=== PATIENT | male | born 1980 | race Caucasian/White ===

== ENCOUNTER 2018-12-10 19:41 | Inpatient (IN) | payer MEDICAID ==
[2018-12-10 20:15] LABS: ADD MAN DIFF? NO
[2018-12-10] MEDS: CEFEPIME 1GM/50 ML (PMX) 50 ML IVPB (20:17)
[2018-12-10] MEDS: IBUPROFEN 600 MG TAB PO (20:17)
[2018-12-10 20:18] LABS: WHITE BLOOD COUNT 14.4 10^3/ul (4.8-10.8)
[2018-12-10 20:18] LABS: BASOPHILS % 0.2 % (0.0-2.0); EOSINOPHILS % 0.1 % (0.0-7.0); HEMATOCRIT 33.3 % (42.0-52.0); HEMOGLOBIN 10.8 g/dl (14.0-18.0); LYMPHOCYTES # 0.9 10^3/ul (0.8-2.9); LYMPHOCYTES % 6.3 % (15.0-51.0); MEAN CORPUSCULAR HEMOGLOBIN 27.6 pg (29.0-33.0); MEAN CORPUSCULAR HGB CONC 32.4 g/dl (32.0-37.0); MEAN CORPUSCULAR VOLUME 85.2 fl (82.0-101.0); MEAN PLATELET VOLUME 11.1 fl (7.4-10.4); MONOCYTE # 1.5 10^3/ul (0.3-0.9); MONOCYTES % 10.1 % (0.0-11.0); NEUTROPHIL # 11.9 10^3/ul (1.6-7.5); NEUTROPHILS % 82.6 % (39.0-77.0); PLATELET COUNT 121 10^3/UL (140-415); RED BLOOD COUNT 3.91 10^6/ul (4.70-6.10); RED CELL DISTRIBUTION WIDTH 15.4 % (11.5-14.5)
[2018-12-10 20:35] LABS: INR 1.21; PROTIME 15.4 Sec (11.9-14.9); PT RATIO 1.2
[2018-12-10 20:36] LABS: PARTIAL THROMBOPLASTIN TIME 36.4 Sec (23.0-35.0)
[2018-12-10 20:37] LABS: ALANINE AMINOTRANSFERASE 35 IU/L (13-69); ALBUMIN 4.3 g/dl (3.3-4.9); ALBUMIN/GLOBULIN RATIO 1.38; ALKALINE PHOSPHATASE 73 IU/L (42-121); ANION GAP 15 (5-13); ASPARTATE AMINO TRANSFERASE 17 IU/L (15-46); BILIRUBIN,INDIRECT 0.3 mg/dl (0-1.1); BILIRUBIN,TOTAL 0.3 mg/dl (0.2-1.3); BLOOD UREA NITROGEN 75 mg/dl (7-20); C-REACTIVE PROTEIN 8.4 mg/dl (0.0-0.9); CALCIUM 9.4 mg/dl (8.4-10.2); CARBON DIOXIDE 25 mmol/L (21-31); CHLORIDE 100 mmol/L (97-110); GLUCOSE 122 mg/dl (70-220); LIPASE 61 U/L (23-300); POTASSIUM 4.2 mmol/L (3.5-5.1); SODIUM 140 mmol/L (135-144); TOTAL PROTEIN 7.4 g/dl (6.1-8.1)
[2018-12-10 20:41] LABS: Estimated GFR 4 mL/min (>60)
[2018-12-10 20:46] LABS: TROPONIN-I 0.109 ng/ml (0.000-0.120)
[2018-12-10] MEDS ORDERED: ONDANSETRON 4 MG INJ IV (21:00)
[2018-12-10] MEDS ORDERED: VANCOMYCIN IV PER PHARMACY XX (21:00)
[2018-12-10] MEDS ORDERED: ACETAMINOPHEN 325 MG TAB PO (21:00)
[2018-12-10] MEDS ORDERED: morphine 2 MG INJ IV (21:00)
[2018-12-10] MEDS ORDERED: DOCUSATE SODIUM 100 MG CAP PO (21:00)
[2018-12-10] MEDS ORDERED: NACL 0.9% 3 ML SYG IV (21:00)
[2018-12-10] MEDS ORDERED: BISACODYL (EC) 5 MG TAB PO (21:00)
[2018-12-10] MEDS: ASPIRIN 81 MG TAB PO (21:09)
[2018-12-10] MEDS: VANCOMYCIN HCL 1.25 GM in SOD CHLORIDE 0.9% 250 ML IVPB (21:20)
[2018-12-10 22:35] LABS: LACTIC ACID 0.7 mmol/L (0.5-2.0)
[2018-12-10] MEDS: HEPARIN 5,000 UNIT/1 ML VIAL SC (22:36)
[2018-12-10] MEDS: METOPROLOL 100 MG TAB PO (23:46)
[2018-12-10] MEDS: NIFEdipine (XL) 60 MG TAB PO (23:47)
[2018-12-10] MEDS: PIPER-TAZO 2.25 GM (PMX) 50 ML IVPB (23:47)
[2018-12-11] MEDS: SOD CHLORIDE 0.9% 250 ML IV (00:50)
[2018-12-11 01:32] LABS: LACTIC ACID 0.7 mmol/L (0.5-2.0)
[2018-12-11 02:34] LABS: CREATINE KINASE 46 IU/L (23-200)
[2018-12-11 02:47] LABS: CK INDEX 0.5; CK-MB < 0.22 ng/ml (0.0-2.4)
[2018-12-11 02:51] LABS: TROPONIN-I 0.133 ng/ml (0.000-0.120)
[2018-12-11] MEDS: morphine 2 MG INJ IV (05:26)
[2018-12-11] MEDS: HEPARIN 5,000 UNIT/1 ML VIAL SC ×3 (05:36→22:39)
[2018-12-11 05:45] LABS: ADD MAN DIFF? NO
[2018-12-11 05:59] LABS: WHITE BLOOD COUNT 14.1 10^3/ul (4.8-10.8)
[2018-12-11 05:59] LABS: BASOPHILS % 0.1 % (0.0-2.0); EOSINOPHILS # 0.1 10^3/ul (0.0-0.5); EOSINOPHILS % 0.4 % (0.0-7.0); HEMATOCRIT 29.3 % (42.0-52.0); HEMOGLOBIN 9.4 g/dl (14.0-18.0); LYMPHOCYTES # 1.4 10^3/ul (0.8-2.9); MEAN CORPUSCULAR HEMOGLOBIN 27.6 pg (29.0-33.0); MEAN CORPUSCULAR HGB CONC 32.1 g/dl (32.0-37.0); MEAN CORPUSCULAR VOLUME 86.2 fl (82.0-101.0); MEAN PLATELET VOLUME 10.8 fl (7.4-10.4); MONOCYTE # 1.5 10^3/ul (0.3-0.9); MONOCYTES % 10.5 % (0.0-11.0); NEUTROPHIL # 11.1 10^3/ul (1.6-7.5); NEUTROPHILS % 78.5 % (39.0-77.0); PLATELET COUNT 104 10^3/UL (140-415); RED CELL DISTRIBUTION WIDTH 15.5 % (11.5-14.5)
[2018-12-11 06:32] LABS: CK-MB < 0.22 ng/ml (0.0-2.4)
[2018-12-11 06:37] LABS: TROPONIN-I 0.123 ng/ml (0.000-0.120)
[2018-12-11 06:38] LABS: ALANINE AMINOTRANSFERASE 36 IU/L (13-69); ALBUMIN 3.5 g/dl (3.3-4.9); ALBUMIN/GLOBULIN RATIO 1.45; ALKALINE PHOSPHATASE 56 IU/L (42-121); ANION GAP 12 (5-13); ASPARTATE AMINO TRANSFERASE 13 IU/L (15-46); BILIRUBIN,INDIRECT 0.2 mg/dl (0-1.1); BILIRUBIN,TOTAL 0.2 mg/dl (0.2-1.3); BLOOD UREA NITROGEN 83 mg/dl (7-20); CALCIUM 8.6 mg/dl (8.4-10.2); CARBON DIOXIDE 24 mmol/L (21-31); CHLORIDE 105 mmol/L (97-110); CHOL/HDL RATIO 2.3 RATIO; CHOLESTEROL 79 mg/dl (100-200); CK INDEX 0.7; CREATINE KINASE 33 IU/L (23-200); GLUCOSE 104 mg/dl (70-220); HDL CHOLESTEROL 34 mg/dl (28-63); LDL CHOLESTEROL,CALCULATED 26 mg/dl; MAGNESIUM 3.1 mg/dl (1.7-2.5); SODIUM 141 mmol/L (135-144); TOTAL PROTEIN 5.9 g/dl (6.1-8.1); TRIGLYCERIDES 93 mg/dl (0-149)
[2018-12-11 06:47] LABS: CREATININE 15.33 mg/dl (0.61-1.24); Estimated GFR 4 mL/min (>60)
[2018-12-11] MEDS: MULTIVIT/CA CARB/B CMPLX/FA TAB PO (08:16)
[2018-12-11] MEDS: NIFEdipine (XL) 60 MG TAB PO ×2 (08:16→20:47)
[2018-12-11] MEDS: ASPIRIN (EC) 81 MG TAB PO (08:17)
[2018-12-11] MEDS: PIPER-TAZO 2.25 GM (PMX) 50 ML IVPB ×2 (08:17→20:47)
[2018-12-11] MEDS: METOPROLOL 100 MG TAB PO ×2 (08:17→20:47)
[2018-12-11 20:11] LABS: HEPATITIS B SURFACE ANTIGEN NEGATIVE (NEGATIVE)
[2018-12-11] MEDS: ATORVASTATIN 20 MG TAB PO (20:47)
[2018-12-12 05:30] LABS: ADD MAN DIFF? NO
[2018-12-12 05:43] LABS: WHITE BLOOD COUNT 10.4 10^3/ul (4.8-10.8)
[2018-12-12 05:43] LABS: BASOPHILS % 0.3 % (0.0-2.0); EOSINOPHILS # 0.4 10^3/ul (0.0-0.5); HEMATOCRIT 29.9 % (42.0-52.0); HEMOGLOBIN 9.7 g/dl (14.0-18.0); LYMPHOCYTES # 1.6 10^3/ul (0.8-2.9); LYMPHOCYTES % 15.7 % (15.0-51.0); MEAN CORPUSCULAR HGB CONC 32.4 g/dl (32.0-37.0); MEAN CORPUSCULAR VOLUME 86.2 fl (82.0-101.0); MEAN PLATELET VOLUME 11.1 fl (7.4-10.4); MONOCYTES % 9.8 % (0.0-11.0); NEUTROPHIL # 7.3 10^3/ul (1.6-7.5); NEUTROPHILS % 69.7 % (39.0-77.0); PLATELET COUNT 176 10^3/UL (140-415); RED BLOOD COUNT 3.47 10^6/ul (4.70-6.10); RED CELL DISTRIBUTION WIDTH 15.7 % (11.5-14.5)
[2018-12-12 06:05] LABS: CREATINE KINASE 24 IU/L (23-200)
[2018-12-12] MEDS: HEPARIN 5,000 UNIT/1 ML VIAL SC ×3 (06:06→21:15)
[2018-12-12 06:08] LABS: ALANINE AMINOTRANSFERASE 30 IU/L (13-69); ALBUMIN 3.3 g/dl (3.3-4.9); ALBUMIN/GLOBULIN RATIO 1.43; ALKALINE PHOSPHATASE 60 IU/L (42-121); ANION GAP 11 (5-13); ASPARTATE AMINO TRANSFERASE 13 IU/L (15-46); BILIRUBIN,INDIRECT 0.2 mg/dl (0-1.1); BILIRUBIN,TOTAL 0.2 mg/dl (0.2-1.3); BLOOD UREA NITROGEN 51 mg/dl (7-20); CALCIUM 8.7 mg/dl (8.4-10.2); CARBON DIOXIDE 28 mmol/L (21-31); CHLORIDE 101 mmol/L (97-110); CREATININE 9.76 mg/dl (0.61-1.24); Estimated GFR 6 mL/min (>60); GLUCOSE 94 mg/dl (70-220); SODIUM 140 mmol/L (135-144); TOTAL PROTEIN 5.6 g/dl (6.1-8.1)
[2018-12-12 06:09] LABS: VANCOMYCIN,RANDOM 15.4 ug/ml
[2018-12-12 06:18] LABS: CK INDEX 0.9; CK-MB < 0.22 ng/ml (0.0-2.4); TROPONIN-I 0.068 ng/ml (0.000-0.120)
[2018-12-12 06:19] LABS: CHOL/HDL RATIO 2.7 RATIO; HDL CHOLESTEROL 30 mg/dl (28-63); LDL CHOLESTEROL,CALCULATED 36 mg/dl; TRIGLYCERIDES 81 mg/dl (0-149)
[2018-12-12 06:19] LABS: CHOLESTEROL 82 mg/dl (100-200)
[2018-12-12] MEDS: MULTIVIT/CA CARB/B CMPLX/FA TAB PO (09:34)
[2018-12-12] MEDS: METOPROLOL 100 MG TAB PO ×2 (09:34→21:01)
[2018-12-12] MEDS: ASPIRIN (EC) 81 MG TAB PO (09:34)
[2018-12-12] MEDS: PIPER-TAZO 2.25 GM (PMX) 50 ML IVPB ×2 (09:35→20:53)
[2018-12-12] MEDS: NIFEdipine (XL) 60 MG TAB PO ×2 (09:35→21:01)
[2018-12-12] MEDS: VANCOMYCIN 1 GM 250 ML IVPB (17:30)
[2018-12-12] MEDS: ATORVASTATIN 20 MG TAB PO (21:01)
[2018-12-13 05:53] LABS: ADD MAN DIFF? NO
[2018-12-13 06:07] LABS: BASOPHILS % 0.5 % (0.0-2.0); EOSINOPHILS # 0.5 10^3/ul (0.0-0.5); EOSINOPHILS % 6.9 % (0.0-7.0); HEMATOCRIT 30.8 % (42.0-52.0); HEMOGLOBIN 9.8 g/dl (14.0-18.0); LYMPHOCYTES # 1.5 10^3/ul (0.8-2.9); MEAN CORPUSCULAR HEMOGLOBIN 27.6 pg (29.0-33.0); MEAN CORPUSCULAR HGB CONC 31.8 g/dl (32.0-37.0); MEAN CORPUSCULAR VOLUME 86.8 fl (82.0-101.0); MONOCYTE # 0.7 10^3/ul (0.3-0.9); MONOCYTES % 9.4 % (0.0-11.0); NEUTROPHIL # 4.7 10^3/ul (1.6-7.5); NEUTROPHILS % 62.8 % (39.0-77.0); PLATELET COUNT 214 10^3/UL (140-415); RED BLOOD COUNT 3.55 10^6/ul (4.70-6.10); RED CELL DISTRIBUTION WIDTH 15.5 % (11.5-14.5)
[2018-12-13 06:07] LABS: WHITE BLOOD COUNT 7.4 10^3/ul (4.8-10.8)
[2018-12-13 06:32] LABS: ALANINE AMINOTRANSFERASE 37 IU/L (13-69); ALBUMIN 3.6 g/dl (3.3-4.9); ALBUMIN/GLOBULIN RATIO 1.38; ALKALINE PHOSPHATASE 78 IU/L (42-121); ANION GAP 15 (5-13); ASPARTATE AMINO TRANSFERASE 26 IU/L (15-46); BILIRUBIN,INDIRECT 0.2 mg/dl (0-1.1); BILIRUBIN,TOTAL 0.2 mg/dl (0.2-1.3); BLOOD UREA NITROGEN 71 mg/dl (7-20); CALCIUM 8.7 mg/dl (8.4-10.2); CARBON DIOXIDE 25 mmol/L (21-31); CHLORIDE 102 mmol/L (97-110); CREATININE 12.55 mg/dl (0.61-1.24); Estimated GFR 5 mL/min (>60); GLUCOSE 86 mg/dl (70-220); SODIUM 142 mmol/L (135-144); TOTAL PROTEIN 6.2 g/dl (6.1-8.1)
[2018-12-13] MEDS: HEPARIN 5,000 UNIT/1 ML VIAL SC ×3 (06:37→22:38)
[2018-12-13] MEDS: PIPER-TAZO 2.25 GM (PMX) 50 ML IVPB ×2 (08:26→22:27)
[2018-12-13] MEDS: MULTIVIT/CA CARB/B CMPLX/FA TAB PO (08:33)
[2018-12-13] MEDS: ASPIRIN (EC) 81 MG TAB PO (08:34)
[2018-12-13] MEDS: METOPROLOL 100 MG TAB PO ×2 (08:34→22:28)
[2018-12-13] MEDS: NIFEdipine (XL) 60 MG TAB PO ×2 (08:34→22:28)
[2018-12-13] MEDS: IVABRADINE HCL 5 MG TABLET PO ×2 (10:22→11:36)
[2018-12-13] MEDS: METOPROLOL 50 MG TAB PO (12:36)
[2018-12-13] MEDS: ATORVASTATIN 20 MG TAB PO (22:28)
[2018-12-14 05:53] LABS: ADD MAN DIFF? NO
[2018-12-14 05:57] LABS: BASOPHILS % 0.5 % (0.0-2.0); EOSINOPHILS # 0.4 10^3/ul (0.0-0.5); HEMATOCRIT 31.2 % (42.0-52.0); LYMPHOCYTES # 1.1 10^3/ul (0.8-2.9); LYMPHOCYTES % 17.8 % (15.0-51.0); MEAN CORPUSCULAR HEMOGLOBIN 27.9 pg (29.0-33.0); MEAN CORPUSCULAR HGB CONC 32.1 g/dl (32.0-37.0); MEAN CORPUSCULAR VOLUME 86.9 fl (82.0-101.0); MEAN PLATELET VOLUME 9.6 fl (7.4-10.4); MONOCYTE # 0.6 10^3/ul (0.3-0.9); MONOCYTES % 10.3 % (0.0-11.0); NEUTROPHIL # 3.8 10^3/ul (1.6-7.5); NEUTROPHILS % 63.6 % (39.0-77.0); PLATELET COUNT 199 10^3/UL (140-415); RED BLOOD COUNT 3.59 10^6/ul (4.70-6.10); RED CELL DISTRIBUTION WIDTH 15.5 % (11.5-14.5)
[2018-12-14] MEDS: HEPARIN 5,000 UNIT/1 ML VIAL SC ×3 (06:14→21:33)
[2018-12-14 06:15] LABS: ALANINE AMINOTRANSFERASE 48 IU/L (13-69); ALBUMIN 3.5 g/dl (3.3-4.9); ALKALINE PHOSPHATASE 71 IU/L (42-121); ANION GAP 10 (5-13); ASPARTATE AMINO TRANSFERASE 27 IU/L (15-46); BILIRUBIN,INDIRECT 0.2 mg/dl (0-1.1); BILIRUBIN,TOTAL 0.2 mg/dl (0.2-1.3); BLOOD UREA NITROGEN 40 mg/dl (7-20); CALCIUM 8.6 mg/dl (8.4-10.2); CARBON DIOXIDE 29 mmol/L (21-31); CHLORIDE 103 mmol/L (97-110); CREATININE 8.65 mg/dl (0.61-1.24); Estimated GFR 7 mL/min (>60); GLUCOSE 91 mg/dl (70-220); POTASSIUM 4.4 mmol/L (3.5-5.1); SODIUM 142 mmol/L (135-144); TOTAL PROTEIN 6.4 g/dl (6.1-8.1)
[2018-12-14] MEDS: MULTIVIT/CA CARB/B CMPLX/FA TAB PO (08:17)
[2018-12-14] MEDS: NIFEdipine (XL) 60 MG TAB PO ×2 (08:17→21:29)
[2018-12-14] MEDS: PIPER-TAZO 2.25 GM (PMX) 50 ML IVPB (08:18)
[2018-12-14] MEDS: METOPROLOL 100 MG TAB PO ×2 (08:18→21:28)
[2018-12-14] MEDS: ASPIRIN (EC) 81 MG TAB PO (08:18)
[2018-12-14] MEDS: IVABRADINE HCL 5 MG TABLET PO (09:23)
[2018-12-14] MEDS: PROPRANOLOL 40 MG TAB PO (11:03)
[2018-12-14] MEDS: NITROGLYCERIN AEROSOL (4.9 GM) (12:22)
[2018-12-14] MEDS: SOD CHLORIDE 0.9% 100 ML (12:38)
[2018-12-14] MEDS: IOHEXOL 100 ML (12:38)
[2018-12-14] MEDS: DOXYCYCLINE 100 MG TAB PO ×2 (14:16→21:28)
[2018-12-14] MEDS: ATORVASTATIN 20 MG TAB PO (21:28)
[2018-12-15 06:32] LABS: ANION GAP 13 (5-13); BLOOD UREA NITROGEN 54 mg/dl (7-20); CARBON DIOXIDE 26 mmol/L (21-31); CHLORIDE 101 mmol/L (97-110); CREATININE 10.71 mg/dl (0.61-1.24); Estimated GFR 5 mL/min (>60); GLUCOSE 87 mg/dl (70-220); POTASSIUM 4.8 mmol/L (3.5-5.1); SODIUM 140 mmol/L (135-144)
[2018-12-15] MEDS: HEPARIN 5,000 UNIT/1 ML VIAL SC ×3 (06:32→22:00)
[2018-12-15] MEDS: METOPROLOL 100 MG TAB PO ×2 (09:00→20:46)
[2018-12-15] MEDS: NIFEdipine (XL) 60 MG TAB PO ×2 (09:00→20:46)
[2018-12-15] MEDS: ASPIRIN (EC) 81 MG TAB PO (09:21)
[2018-12-15] MEDS: DOXYCYCLINE 100 MG TAB PO ×2 (09:21→20:46)
[2018-12-15] MEDS: MULTIVIT/CA CARB/B CMPLX/FA TAB PO (09:21)
[2018-12-15] MEDS: LOSARTAN 25 MG TAB PO ×2 (11:45→20:47)
[2018-12-15] MEDS: NITROGLYCERIN AEROSOL (4.9 GM) (16:01)
[2018-12-15] MEDS: IODIXANOL LOCM 100 ML BTL (16:01)
[2018-12-15] MEDS: SOD CHLORIDE 0.9% 100 ML (16:01)
[2018-12-15] MEDS: IOHEXOL 100 ML (16:01)
[2018-12-15] MEDS: ATORVASTATIN 20 MG TAB PO (20:45)
[2018-12-16] MEDS: HEPARIN 5,000 UNIT/1 ML VIAL SC (06:00)
[2018-12-16] MEDS: DOXYCYCLINE 100 MG TAB PO (09:07)
[2018-12-16] MEDS: ASPIRIN (EC) 81 MG TAB PO (09:07)
[2018-12-16] MEDS: MULTIVIT/CA CARB/B CMPLX/FA TAB PO (09:07)
[2018-12-16] MEDS: METOPROLOL 100 MG TAB PO (09:08)
[2018-12-16] MEDS: LOSARTAN 25 MG TAB PO (09:08)
[2018-12-16] MEDS: NIFEdipine (XL) 60 MG TAB PO (09:08)
[2018-12-16] MEDS ORDERED: LOSARTAN 50 MG TAB PO (21:00)
[2018-12-17] MEDS ORDERED: NIFEdipine (XL) 90 MG TAB PO (09:00)
== END 2018-12-16 14:30 | disposition home or self-care (01) | DRG 871 ==
LOC: E/R 19:41 → 6WM 23:26
PROC: 5A1D70Z Performance of Urinary Filtration, Intermittent, Less than 6 Hours Per Day (ICD-10-PCS; principal; 2018-12-11)
DX: A41.9 Sepsis, unspecified organism (principal); J18.1 Lobar pneumonia, unspecified organism; N18.6 End stage renal disease; I13.11 Hypertensive heart and chronic kidney disease without heart failure, with stage 5 chronic kidney disease, or end stage renal disease; E83.39 Other disorders of phosphorus metabolism; E87.70 Fluid overload, unspecified; E78.5 Hyperlipidemia, unspecified; E66.9 Obesity, unspecified; Z68.32 Body mass index [BMI] 32.0-32.9, adult; Z99.2 Dependence on renal dialysis; I20.9 Angina pectoris, unspecified; H35.039 Hypertensive retinopathy, unspecified eye; D63.1 Anemia in chronic kidney disease; E78.00 Pure hypercholesterolemia, unspecified; R79.89 Other specified abnormal findings of blood chemistry
CPT/HCPCS: 36415; 71045; 75574; 80048; 80053; 80061; 80202; 82550; 82553; 83036; 83605; 83690; 83735; 84443; 84484; 85025; 85610; 85730; 86140; 87040-91; 87340; 87400; 90935; 93005; 93306; 96374; 99285-25